=== PATIENT | male | born 1955 | race Asian ===

== ENCOUNTER 2018-01-29 06:23 | Emergency (ER) | payer MEDICAID ==
[~2018-01-29] VITALS: Ht 175.3 cm; Wt 75.3 kg
[2018-01-29 06:29] VITALS: BP 136/89
== END 2018-01-29 07:09 | disposition home or self-care (01) ==
LOC: ED 06:55
DX: L50.0 Allergic urticaria (principal)
CPT/HCPCS: 99283

== ENCOUNTER 2018-02-11 23:14 | Emergency (ER) | payer MEDICAID ==
[~2018-02-11] VITALS: Ht 175.3 cm; Wt 75.6 kg
[2018-02-11 23:52] VITALS: BP 119/76
== END 2018-02-11 23:54 | disposition home or self-care (01) ==
LOC: ED 23:38
DX: L24.9 Irritant contact dermatitis, unspecified cause (principal)
CPT/HCPCS: 99283

== ENCOUNTER 2018-12-22 21:41 | Emergency (ER) | payer MEDICAID ==
[~2018-12-22] VITALS: Ht 175.3 cm; Wt 78.9 kg
[2018-12-22 21:48] VITALS: BP 117/74
[2018-12-22] MEDS ORDERED: IBUPROFEN 200 MG TABLET ONE (22:16)
[2018-12-22] MEDS ORDERED: IBUPROFEN 200 MG TABLET PO ONE (22:30)
--- NOTE | 2018-12-22 22:46 | NUR ---
DC EDUCATION PROVIDED, PT DEMONSTRATES UNDERSTANDING. PT AMBULATED STEADILY TO DC WITH RN.
== END 2018-12-22 22:57 | disposition home or self-care (01) ==
LOC: ED 22:45
DX: S39.012A Strain of muscle, fascia and tendon of lower back, initial encounter (principal); L25.9 Unspecified contact dermatitis, unspecified cause; L20.84 Intrinsic (allergic) eczema; X58.XXXA Exposure to other specified factors, initial encounter; Y93.89 Activity, other specified; Y92.89 Other specified places as the place of occurrence of the external cause; Y99.8 Other external cause status
CPT/HCPCS: 72110; 72220; 99283

== ENCOUNTER 2019-01-12 14:06 | Emergency (ER) | payer MEDICAID ==
[~2019-01-12] VITALS: Ht 175.3 cm; Wt 77.4 kg
[2019-01-12 14:37] VITALS: BP 110/67
--- NOTE | 2019-01-12 15:17 | NUR ---
Patient given discharge instructions and they have confirmed that they understand the instructions. Patient ambulatory with steady gait.
== END 2019-01-12 15:18 | disposition home or self-care (01) ==
LOC: ED 15:12
DX: L20.84 Intrinsic (allergic) eczema (principal); F17.200 Nicotine dependence, unspecified, uncomplicated
CPT/HCPCS: 99282

== ENCOUNTER 2019-01-22 09:47 | Emergency (ER) | payer MEDICAID ==
[~2019-01-22] VITALS: Ht 175.3 cm; Wt 78.2 kg
[2019-01-22 10:00] VITALS: BP 120/66
== END 2019-01-22 10:36 | disposition home or self-care (01) ==
LOC: ED 10:13
DX: L20.83 Infantile (acute) (chronic) eczema (principal); F17.200 Nicotine dependence, unspecified, uncomplicated
CPT/HCPCS: 99283

== ENCOUNTER 2019-01-29 08:44 | Emergency (ER) | payer MEDICAID ==
[~2019-01-29] VITALS: Ht 175.3 cm; Wt 77.7 kg
[2019-01-29 08:47] VITALS: BP 125/75
--- NOTE | 2019-01-29 09:01 | NUR ---
PT TO ROOM FROM LOBBY
--- NOTE | 2019-01-29 09:15 | NUR ---
Assumed care of patient. C/O itchy dermatitis on scalp. NAD. Will continue to monitor.
--- NOTE | 2019-01-29 10:28 | NUR ---
Resting in [facility]. No needs.
--- NOTE | 2019-01-29 11:20 | NUR ---
Patient/Caregiver given discharge instructions and they have confirmed that they understand the instructions. Patient ambulatory with steady gait.
== END 2019-01-29 11:21 | disposition home or self-care (01) ==
LOC: ED 10:25
DX: L20.84 Intrinsic (allergic) eczema (principal); L21.9 Seborrheic dermatitis, unspecified; Z76.0 Encounter for issue of repeat prescription
CPT/HCPCS: 99283

== ENCOUNTER 2019-02-10 13:11 | Emergency (ER) | payer MEDICAID ==
[~2019-02-10] VITALS: Ht 175.3 cm; Wt 77.3 kg
[2019-02-10 13:17] VITALS: BP 113/78
== END 2019-02-10 14:11 | disposition home or self-care (01) ==
LOC: ED 14:00
DX: L20.84 Intrinsic (allergic) eczema (principal); L03.811 Cellulitis of head [any part, except face]; B35.0 Tinea barbae and tinea capitis; F17.200 Nicotine dependence, unspecified, uncomplicated
CPT/HCPCS: 99283

== ENCOUNTER 2019-02-14 12:53 | Emergency (ER) | payer MEDICAID ==
[~2019-02-14] VITALS: Ht 175.3 cm; Wt 77.2 kg
[2019-02-14 14:20] VITALS: BP 131/77
== END 2019-02-14 15:03 | disposition home or self-care (01) ==
LOC: ED 15:00
DX: L20.84 Intrinsic (allergic) eczema (principal); B35.0 Tinea barbae and tinea capitis; F17.200 Nicotine dependence, unspecified, uncomplicated
CPT/HCPCS: 99283